=== PATIENT | female | born 1960 | race Two or more races ===

== ENCOUNTER 2020-02-26 15:34 | Emergency (ER) | payer OTHER ==
[~2020-02-26] VITALS: Ht 160 cm; Wt 65.8 kg
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
[2020-02-26] MEDS ORDERED: ACETAMINOPHEN ES 500 MG TABLET PO ONE (16:00)
[2020-02-26] MEDS ORDERED: IBUPROFEN 600 MG TABLET PO ONE (16:00)
[2020-02-26] MEDS ORDERED: IBUPROFEN 600 MG TABLET ONE (16:01)
[2020-02-26] MEDS ORDERED: ACETAMINOPHEN ES 500 MG TABLET ONE (16:01)
[2020-02-26 17:10] VITALS: BP 128/61
--- NOTE | 2020-02-26 17:10 | NUR ---
Patient discharged to home in stable condition. Written and verbal after care instructions given. Patient verbalizes understanding of instruction.
== END 2020-02-26 17:10 | disposition home or self-care (01) ==
LOC: ER 15:42
DX: S20.219A Contusion of unspecified front wall of thorax, initial encounter (principal); S80.811A Abrasion, right lower leg, initial encounter; J45.909 Unspecified asthma, uncomplicated; V49.49XA Driver injured in collision with other motor vehicles in traffic accident, initial encounter; W22.11XA Striking against or struck by driver side automobile airbag, initial encounter; Y93.89 Activity, other specified; Y92.413 State road as the place of occurrence of the external cause; Y99.8 Other external cause status
CPT/HCPCS: 71045-TC